=== PATIENT | male | born 2000 | race Asian ===

== ENCOUNTER 2018-06-24 17:24 | Emergency (ER) | payer OTHER ==
[~2018-06-24] VITALS: Ht 167.6 cm; Wt 59.0 kg
[2018-06-24 17:45] VITALS: BP 109/68
[2018-06-24] MEDS: PROPARACAINE/FLUORESCEIN 0.5 ML OPHTH DROPS. OD ONE (18:15)
[2018-06-24] MEDS: TETRACAINE 0.5% OPHTH SOLUTION 4ML BOTTLE. OD ONE (18:15)
[2018-06-24] MEDS ORDERED: ERYT1OIN6 OP (18:42)
--- NOTE | 2018-06-24 18:42 | PHYS DOC ---
Past Medical History Past Medical History: No Pertinent History Past Surgical History: No Surgical History Alcohol Use: None Drug Use: None Adult General Chief Complaint Chief Complaint: EYE PROBLEMS HPI HPI Patient is a 18 year old male who presents with abrasion to outer upper right eye after pulling a book back in the corner hit his eye. Patient states it hurts when he blinks his eye at first had some blurred vision but today he does not. He denies any sensitivity to light. Review of Systems Review of Systems Constitutional: Denies fever or chills [] Eyes: Denies change in visual acuity, redness, or eye pain [] HENT: Denies nasal congestion or sore throat [] Respiratory: Denies cough or shortness of breath [] Cardiovascular: No additional information not addressed in HPI [] GI: Denies abdominal pain, nausea, vomiting, bloody stools or diarrhea [] : Denies dysuria or hematuria [] Musculoskeletal: Denies back pain or joint pain [] Integument: Denies rash or skin lesions [] Neurologic: Denies headache, focal weakness or sensory changes [] Endocrine: Denies polyuria or polydipsia [] All other systems were reviewed and found to be within normal limits, except as documented in this note. Current Medications Current Medications Current Medications Medications (Trade) Dose Ordered Sig/Gaurang Start Time Stop Time Status Last Admin Dose Admin Proparacaine HCl/ Fluorescein Sodium (Flucaine Eye Drops) 1 drop 1X ONCE 06/24/18 18:15 06/24/18 18:16 DC 06/24/18 18:15 1 DROP Tetracaine HCl (Tetracaine) 1 drop 1X ONCE 06/24/18 18:15 06/24/18 18:16 DC 06/24/18 18:15 1 DROP Allergies Allergies Allergies Coded Allergies Type Severity Reaction Last Updated Verified No Known Drug Allergies 06/24/18 No Physical Exam Physical Exam Constitutional: Well developed, well nourished, no acute distress, non-toxic appearance. [] HENT: Normocephalic, atraumatic, bilateral external ears normal, oropharynx moist, no oral exudates, nose normal. [] Eyes: PERRLA, EOMI, conjunctiva normal, no discharge. [] Neck: Normal range of motion, no tenderness, supple, no stridor. [] Cardiovascular:Heart rate regular rhythm, no murmur [] Lungs & Thorax: Bilateral breath sounds clear to auscultation [] Abdomen: Bowel sounds normal, soft, no tenderness, no masses, no pulsatile masses. [] Skin: Warm, dry, no erythema, no rash. [] Back: No tenderness, no CVA tenderness. [] Extremities: No tenderness, no cyanosis, no clubbing, ROM intact, no edema. [] Neurologic: Alert and oriented X 3, normal motor function, normal sensory function, no focal deficits noted. [] Psychologic: Affect normal, judgement normal, mood normal. [] Current Patient Data Vital Signs Vital Signs Date Time Temp Pulse Resp B/P (MAP) Pulse Ox O2 Delivery O2 Flow Rate FiO2 06/24/18 17:45 99.0 64 16 109/68 (82) 97 Room Air 99.0 EKG EKG [] Radiology/Procedures Radiology/Procedures [] Course & Med Decision Making Course & Med Decision Making Patient is a 18 year old male who presents with abrasion to outer upper right eye after pulling a book back in the corner hit his eye. Patient states it hurts when he blinks his eye at first had some blurred vision but today he does not. He denies any sensitivity to light. Alert and oriented. Visual acuities: Both 20/25, right eye 20/25, left eye 20/20. Eye exam there is a corneal abrasion seen to the right upper inner eye. Patient is given erythromycin ointment told to follow-up with, injury or primary care. Eye Exam w/ slit lamp: Visual Acuity: As stated above Visual Gregorio: Intact in all four quadrants bilaterally Lac ducts/glands: No swelling Lids w/ evertion: Normal, no foreign body Conj/[place]: Clear, Positive Fluorescein/Giuseppe's Anterior Chamber: Clear Tonopen readings: Retina exam: No obvious abnormality [] Dragon Disclaimer Dragon Disclaimer This electronic medical record was generated, in whole or in part, using a voice recognition dictation system. Departure Departure Impression: Primary Impression: Abrasion of eye Disposition: HOME, SELF-CARE Condition: STABLE Referrals: NO PCP (PCP) Patient Instructions: Eye - Corneal Abrasion Additional Instructions: Call Working Foreman tomorrow. Use medication as prescribed. Try a warm compress. Return if not getting better. Scripts Erythromycin Base (Erythromycin) 1 Gm Oint...g. 1 GM OP 6XDAY for 7 Days, #1 MISC Apply 1cm in eye Prov: LOYD COFFMAN APRN 06/24/18 Problem Qualifiers Primary Impression: Abrasion of eye Encounter type: initial encounter Laterality: right Qualified Codes: S05.8X1A - Other injuries of right eye and orbit, initial encounter LOYD COFFMAN APRN Jun 24, 2018 18:42
== END 2018-06-24 18:50 | disposition home or self-care (01) ==
LOC: ER 17:24
DX: S00.211A Abrasion of right eyelid and periocular area, initial encounter (principal); W22.8XXA Striking against or struck by other objects, initial encounter; Y93.89 Activity, other specified; Y92.69 Other specified industrial and construction area as the place of occurrence of the external cause; Y99.0 Civilian activity done for income or pay
CPT/HCPCS: 99283

== ENCOUNTER 2019-10-01 09:22 | Emergency (ER) | payer BC, OTHER ==
[~2019-10-01] VITALS: Ht 167.6 cm; Wt 67.0 kg
[~2019-10-01 09:22] MED LIST: ERYT1OIN6 OP
--- NOTE | 2019-10-01 09:57 | PHYS DOC ---
Past Medical History Past Medical History: No Pertinent History (PEPE WINSTON APRN) Past Surgical History: No Surgical History (PEPE WINSTON APRN) Smoking Status: Never Smoker Alcohol Use: None Drug Use: None (PEPE WINSTON APRN) Adult General Chief Complaint Chief Complaint: SORE THROAT [facility] HPI Patient is a 19 year old female who presents with sore throat, and cough that is been ongoing since yesterday. Denies fever, denies shortness of breath. Complete ROS were reviewed and found to be within normal limits, except as documented in the HPI (PEPE WINSTON APRN) Allergies Allergies Allergies Coded Allergies Type Severity Reaction Last Updated Verified No Known Drug Allergies 06/24/18 No (ROBERT MORE MD) Physical Exam Physical Exam Constitutional: Well developed, well nourished, no acute distress, non-toxic appearance. [] HENT: Normocephalic, atraumatic, bilateral external ears normal, oropharynx moist, tonsils are 1+/4 with no oral exudates, nose normal. [] Eyes: PERRLA, EOMI, conjunctiva normal, no discharge. [] Cardiovascular:Heart rate regular rhythm, no murmur [] Lungs & Thorax: Bilateral breath sounds clear to auscultation [] Neurologic: Alert and oriented X 3, normal motor function, normal sensory function, no focal deficits noted. [] Psychologic: Affect normal, judgment normal, mood normal. [] (PEPE WINSTON APRN) Current Patient Data Vital Signs Vital Signs Date Time Temp Pulse Resp B/P (MAP) Pulse Ox O2 Delivery O2 Flow Rate FiO2 10/01/19 10:03 134/83 (100) Room Air 10/01/19 09:32 98.7 84 17 99 98.7 (ROBERT MORE MD) Lab Values Laboratory Tests Test 10/01/19 09:50 Group A Streptococcus Rapid Negative (NEGATIVE) (ROBERT MORE MD) EKG EKG [] (PEPE WINSTON APRN) Radiology/Procedures Radiology/Procedures [] (PEPE WINSTON APRN) Course & Med Decision Making Course & Med Decision Making Pertinent Labs and Imaging studies reviewed. (See chart for details) We will get a strep test on the patient. The strep test is negative we will have the patient go home and self isolate for 14 days. Strep test is negative. (PEPE WINSTON APRN) Course & Med Decision Making Staff Physician Addendum: I was working in the ER during the course of this patient's visit. I was available for consultation as needed, but I was not directly involved in the care of this patient. (ROBERT MORE MD) Dragon Disclaimer Dragon Disclaimer This electronic medical record was generated, in whole or in part, using a voice recognition dictation system. (PEPE WINSTON APRN) Departure Departure Impression: Primary Impression: Sore throat Disposition: HOME, SELF-CARE Condition: STABLE Referrals: NO PCP (PCP) Patient Instructions: Viral Syndrome Additional Instructions: Thank you for visiting [facility]. We appreciate you trusting us with your care. If any additional problems come up don't hesitate to return to visit us. Please follow up with your primary care provider so they can plan additional care if needed and know about the problem that you had. If symptoms worsen come back to the Emergency Department. Any concerning symptoms that start such as chest pain, shortness of air, weakness or numbness on one side of the body, running high fevers or any other concerning symptoms return to the ER. You have a viral syndrome which may include symptoms like muscle aches, fevers, chills, runny nose, cough, sneezing, sore throat, vomiting, or diarrhea. One of the potential viruses that you may have is SARS-CoV-2, the virus that causes COVID-19, also known as the Coronavirus. You are just as likely to have a different viral infection such as the common cold, flu, etc. Most patients with the Coronavirus have mild symptoms and recover on their own. Resting, staying hydrated, and sleep from known cases can be helpful. As of todays visit, you are well enough to go home and treat your symptoms with oral fluids and over the counter medications. Coronavirus testing is not performed on most people with mild symptoms who are being discharged from the emergency department. If Coronavirus testing was performed the results will not be available for possibly up to 2-3 days. If your result is positive you will be contacted. Please follow the following precautions at home: 1) Stay home except to get medical care. 2) As advised by the CDC we recommend you stay in your home and minimize contact with other people. We do not want you to spread the infection. 3) Those who are older or have significant medical issues may have more severe symptoms from this infection. We recommend self-isolation,FOR AT LEAST 7 DAYS after your 1st day of symptoms. AFTER you feel better please wait AT LEAST ANOTHER WEEK before returning to regular activities and being around other people! 4) IF you become sicker and have difficulty breathing, chest pain, unable to eat/drink, severe vomiting, diarrhea, or weakness you may need to return to the Emergency Department. 5) You should restrict activities outside your home, except for getting medical care. DO NOT go to work, school, or public areas. Avoid using public transportation, ride sharing, or taxis. 6) Separate yourself from other people in your home. You should use a separate bathroom if possible. 7) Avoid sharing personal household items such as dishes, cups, eating utensils, towels, etc. 8) Clean all high touch surfaces every day (door knobs, counter tops, etc). Use a household cleaning spray or wipe per label instructions. 9) Clean your hands often. Wash your hands with soap and water for at least 20 seconds. 10) Cover your mouth and nose with a tissue when you cough or sneeze. 11) Throw used tissues in a trash can and immediately wash your hands. For additional resources please visit the CDC website or the [facility] ([phone]). PEPE WINSTON APRN Oct 01, 2019 09:57 ROBERT MORE MD Oct 01, 2019 16:30
[2019-10-01 10:03] VITALS: BP 134/83
== END 2019-10-01 10:03 | disposition home or self-care (01) ==
LOC: ER 09:22
DX: J02.9 Acute pharyngitis, unspecified (principal); R05 Cough
CPT/HCPCS: 87070; 87880; 99283